=== PATIENT | female | born 1980 | race Caucasian/White ===

== ENCOUNTER 2024-09-25 05:55 | Day surgery (SDC) | payer OTHER, SELFPAY ==
[2024-08-11 10:28] VITALS: BMI 35.0
[2024-09-05 08:41] VITALS: BMI 34.4
--- OUTSIDE RECORDS SUMMARY | 2024-09-25 06:11 | XMS_ITS | Clinical Summary ---
Author Organization [facility] Address [address] [place] [address] Care Team Providers Care Synthetic Gem Press Operator Name Role Phone Rhona Mejia MD Primary Care Provider [phone] Source Comments [facility],non-owned Affiliates and Associated Physician Practices is amultiple site organization consisting of ambulatory clinics and hospital sitesin [place], [place], [place] and [place]. This disclosure is being madepursuant to the Care Everywhere program and may not contain all information available regarding this patient. Last updated [employer] [facility] Allergies No known active allergies Medications * Be aware that medications may not be up to date on this document. Alwaysverify current medications with the patient. Medication Sig Dispensed Refills Start Date End Date Status LEVOTHYROXINE SODIUM PO A ctive Citalopram Hydrobromide (CELEXA PO) Active Social History Tobacco Use Types Packs/Day Years Used Date Smoking Tobacco: Never Smokeless Tobacco: Never Sex and Gender Information Value Date Recorded Sex Assigned at Not on file Gender Identity Not on file Sexual Orientation Not on file Last Filed Vital Signs Vital Sign Reading Time Taken Comments Blood Pressure 104/70 02/18/2017 9:20 AM CDT Pulse 72 02/18/2017 9:20 AM CDT Temperature 37.1 C (98.7 F) 02/18/2017 9:20 AM CDT Respiratory Rate - - Oxygen Saturation - - Inhaled Oxygen Concentration - - Weight 68 kg (150 lb) 02/18/2017 9:20 AM CDT Height 157.5 cm (5' 2 ) 02/18/2017 9:20 AM CDT Body Mass Index 27.44 02/18/2017 9:20 AM CDT Plan of Treatment Health Maintenance Due Date Last Done Comments POLO (AGES 45-75) - COL ON CA SCREENING 1979 COLON MONITORING 1979 COLONOSCOPY - COLON CA SCREENING 1979 CT COLONOGRAPHY - COLON CA SCREENING 1979 Colorectal Cancer Screening 1979 FIT - COLON CA SCREENING 1979 FLEX SIG - COLON CA SCREENING 1979 LIPID TESTING 1979 MAMMOGRAM 1979 PAP SMEAR 1979 HIV SCREENING 1994 HEPATITIS C SCREENING 04/06/1997 DTAP/TDAP/TD VACCINES (1 - Tdap) 1998 HEPATITIS B VACCINE (1 of 3 - 19+ 3-dose series) 1998 COVID-19 VACCINE (1 - 2023-2 5 season) 2024 INFLUENZA VACCINE (#1) 2024 DEPRESSION SCREENING 06/28/2024 ZOSTER VACCINE (1 of 2) 2029 HIB VACCINE Aged Out No longer eligi ble based on patient's age to complete this topic HPV VACCINE Aged Out No longer eligi ble based on patient's age to complete this topic MENINGOCOCCAL (Group B) VACC INE SHARED DECISION-MAKING Aged Out No longer eligibl e based on patient's age to complete this topic MENINGOCOCCAL GROUPS A/C/Y/W VACCINE Aged Out No longer eligible b ased on patient's age to complete this topic PNEUMOCOCCAL VACCINE Aged Out No long er eligible based on patient's age to complete this topic Care Teams Synthetic Gem Press Operator Relationship Specialty Start Date End Date Rhona Mejia MD [address] [place] [address] [address] [place] [id number] PCP - General Family Medicine 02/18/17
--- OUTSIDE RECORDS SUMMARY | 2024-09-25 06:11 | XMS_ITS | Clinical Summary ---
Author Organization [facility] Address [address] [place] [address] Phone Care Team Providers Care Search Director Name Role Phone Unavailable Primary Care Provider Unavailabl e Allergies No known active allergies Medications levothyroxine (SYNTHROID) 50 MCG Tablet Take 50 mcg by mouth daily. Active citalopram (CeleXA) 20 MG Tablet Take 20 mg by mouth daily. Active Immunizations Immunization Administration Dates Next Due Influenza, Seasonal, Injectable, Undefined 04/24 TDAP Vaccine 05/04/2013 Social History Tobacco Use Types Packs/Day Years Used Date Smoking Tobacco: Never Assessed Comments Unknown Sex and Gender Information Value Date Recorded Sex Assigned at Not on file Legal Sex Female 7:37 PM CDT Gender Identity Not on file Sexual Orientation Not on file Plan of Treatment Health Maintenance Due Date Last Done Comments Hepatitis C Virus (HCV) Screening 1979 Hepatitis B Immunization (1 of 3 - 19+ 3-dose series) 1998 Pap Smear 2000 Cervical Cancer Screening (CCS) 2009 HPV/Cotest 2009 Discussion re Starting/Frequency of Mammograms 2019 Influenza Immunization (#1) 2024 04/24/2013 SARS-COV-2 Immunization ( season) 2024 10/15/2020, 09/24/2020 Colonoscopy 2024 Colorectal Cancer Screening 2024 Respiratory Syncytial Virus (RSV) Immunization (Adult) (1 - 1-dose 75+ series) 2054 DTaP/Tdap/Td Immunization Discontinued 05/04/2013 Meningococcal Immunization (ACWY) Aged Out No longer eligible based on patient's age to complete this topic Pneumococcal Immunization Combined Aged Out No longer eligible based on patient's age to complete this topic Rotavirus Immunization Aged Out No lo nger eligible based on patient's age to complete this topic
--- OUTSIDE RECORDS SUMMARY | 2024-09-25 06:11 | XMS_ITS | Referral Summary ---
Author Organization [id number] [place] Address [address] [place] [address] Care Team Providers Care Post Office Markup Clerk Name Role Phone Germán Cummins MD Primary Care Provider [phone] Allergies No known active allergies Medications levothyroxine (SYNTHROID, LEVOTHROID) 50 mcg tablet take 1 tablet by oral route every day 90 1 03/19/2015 Active citalopram (CeleXA) 40 mg tablet Take 1 tablet (40 mg total) by mouth daily 08/05/2023 Active Active Problems Problem Noted Date Diagnosed Date Hyperlipidemia 08/04/2023 Acute suppurative otitis med ia without spontaneous rupture of ear drum 07/04/2015 Overview (10/03/2016): Acute suppurative otitis media of left ear without spontaneous rupture of tympanic membrane, recurrence not specified Major depressive disorder 03/19/2015 Overview (10/03/2016): Major depressive disorder Hypothyroidism 03/19/2015 Overview (10/03/2016): Hypothyroidism S/P primary low transverse 08/02/2013 Endometriosis of pelvic peritoneum 09/20/2012 Immunizations Immunization Administration Dates Next Due Influenza, Quadrivalent, Split, Intramuscular ,03/19/2015 Influenza, Trivalent, IM (MDV) 04/24/2013 Influenza, Unspecified 04/24/2013 Tdap 05/04/2013 Social History Tobacco Use Types Packs/Day Years Used Date Smoking Tobacco: Former Cigarettes 1 2012 Smokeless Tobacco: Never Tobacco Cessation:Counseling Given: Not Answered Comments:I was a social smoker. Never really smoked unless I was hanging out with friends. Alcohol Use Standard Drinks/Week Comments No 0 (1 standard drink = 0.6 oz pur e alcohol) Personal Safety Answer Date Recorded Getting School Help Needed Not on file 08/12 Comments No Sex and Gender Information Value Date Recorded Sex Assigned at Not on file Legal Sex Female 7:07 PM RETAIL ADVISOR Gender Identity Not on file Sexual Orientation Not on file Occupation Industry Job Start Date Job End Date [employer] Not on file Not on file Not on file Last Filed Vital Signs Vital Sign Reading Time Taken Comments Blood Pressure 126/68 08/24/2023 2:30 PM RETAIL ADVISOR Pulse 81 10/21/2019 10:27 AM CDT Temperature 36.9 C (98.4 F) 10/21/2019 10:27 AM CDT Respiratory Rate 18 10/21/2019 10:27 AM CDT Oxygen Saturation 99% 10/21/2019 10:27 AM CDT Inhaled Oxygen Concentration - - Weight 83.9 kg (185 lb) 08/24/2023 2:30 PM RETAIL ADVISOR Height 157.5 cm (5' 2 ) 08/24/2023 2:30 PM RETAIL ADVISOR Body Mass Index 33.84 08/24/2023 2:30 PM RETAIL ADVISOR Plan of Treatment Not on file Procedures Procedure Name Priority Date/Time Associated Diagnosis Comments HIGH RISK HPV DNA DETECTION WITH GENOTYPING Routine 08/24/2023 2:57 PM RETAIL ADVISOR Screening for malignant neoplasm of cervix SERUM HEPATITIS C AB Routine 09/20/2012 10:50 AM CDT from Last 3 Months or Most Recently Relevant to Health Maintenance Results * High Risk HPV DNA Detection with Genotyping (Molecular component) (08/24/2023 2:57 PM RETAIL ADVISOR) HPV HR 16 Not Detected Not Detected [facility] AGUIRRE Comment:Testing performed by : [facility], [address], [place]., [address] HPV HR 18 Not Detected Not Detected [facility] AGUIRRE Comment:Testing performed by : [facility], [address] [place]., [address] HPV HR Non 16/18 Not Detected Not Detected [facility] AGUIRRE Comment: Interpretive Data Nucleic acid amplification for detection of high-risk Human Papilloma virus (HPV) is performed by the [employer] Fred 6800 HPV test. This assay specifically detects HPV-16 and HPV-18 genotypes. The following HPV genotypes are detected as high-risk HPV: HPV-31, 33, 35, ,39, 45, 51, 52, 56, 58, 59, 66, and 68. This assay has been approved by the [place] Food and Drug Administration for detection of HPV in cervical specimens collected by a physician using an endocervical brush/spatula or cervical broom and placed in the ThinPrep Pap Test PreservCyt collection containers. The performance characteristics of this test have been verified by the [facility]ious [facility] laboratory. Correlate with separately reported cytology results, as applicable. Interpretive data last revised 22 Testing performed by: [facility], [address] [place]., [address] Endocervical 08/24/2023 2:57 PM RETAIL ADVISOR 08/25/2023 12:28 PM RETAIL ADVISOR Narrative [facility] AGUIRRE - 08/26/2023 4:55 AM RETAIL ADVISOR Clinical history and diagnosis->Liquid-based PAP test with high risk HPV test- Z12.4 Number of vials->1 Testing type->Screening Last menstrual period (date if known)->08/09/23 Armida De Leon DO LAB BODY FLUIDS AND STO OLS ORDERABLES Final Result Performing Organization Address City/[facility]/ZIP Co de Phone Number [facility] [address] [address] Department [place] [address] * Serum Hepatitis C ab (09/20/2012 10:50 AM CDT) HCV ab Negative NEG HISTORICAL RESULTS Serum 09/20/2012 10:5 0 AM CDT Kim Mejia MD LAB BLOOD ORDERABLES Final R esult HISTORICAL RESULTS from Last 3 Months or Most Recently Relevant to Health Maintenance Insurance [facility] [employer] [facility] H[facility]/PPO Address: [address] [address] [facility] [employer]/PPO Address: [address] [place] [address] Care Teams Post Office Markup Clerk Relationship Specialty Start Date End Date Germán Cummins MD [address] [facility] [address] [place] [address] PCP - General 04/30/15
--- OUTSIDE RECORDS SUMMARY | 2024-09-25 06:11 | XMS_ITS | Data Portability ---
Author Organization [facility] [employer]ave, Main Office Address [address] [place] [address] Assessment No assessment recorded. Plan of Treatment Reminders Order Date Submit Date Provider Last Modified By Organization Details Last Modified Time Details Appointments None recorded. Lab lipid panel, serum 2023 024 [email or web address] 2 [facility] (Lab), [address] [place], [address], 4 09:54:41 TSH, serum or plasma 2023 024 [email or web address] 2 [facility] (Lab), [address] [place], [address], 4 09:54:41 CMP, serum or plasma 2023 024 [email or web address] 2 [facility] (Lab), [address] [place], [address], 4 09:54:41 CK (creatine kinase), total, serum 2023 024 [email or web address] 2 [facility] (Lab), [address] [place], [address], 4 09:54:41 Referral gynecologis t referral - needs a pap smear . thank you. Please call patient to schedule an appointment . 2023 024 [email or web address] Jazmine Velasquez, [address], [place], [address], 13:34:59 Procedures None recorded. Surgeries None recorded. Imaging MAMMO, screening, digital, bilateral - *Please call pt to schedule* 2023 [email or web address] Not available 09:15:12 Medication Orders levothyroxi ne 50 mcg tablet 2023 [id number], [address], [place], [id number], 14:26:47 citalopram 40 mg tablet 2023 [facility] #[id number], [address], [place], [id number], 14:25:07 Patient TargetsNo targets recorded. Patient InstructionsNo instructions recorded. Reason for Referral Director Process Improvement Referral for Sc reening for malignant neoplasm of cervix needs a pap smear . thank you. Please call patient to schedule an appointment. Referring Physician: Rian Obando, Family Medicine, Encounter Date: 08/05/2023 Results Created Date Observation Date Name Description Value Unit Range Abnormal Flag Note LastModifiedBy Organization Detail LastModifiedTime 11/06/1911/06/2020 TSH, serum or plasm a TSH 2.30 mIU/L normal Refer ence Range > or = 20 Years 0.40- 4.50 Pregn john Range s First trime ster 0.26- 2.66 Secon d trime ster 0.55- 2.73 Third trime ster 0.43- 2.91 Not Available [facility] [address] [place], [address], 11/06/2020 07:18:38 11/06/1911/06/2020 T4, free, serum T4, free 1.0 NG/dL 0.8-1. 8 normal Not Available [facility] [address] [place], [address], 11/06/2020 07:18:38 11/06/1911/0611/06/2020 CMP, serum or plasm a glucose 98 mg/dL 65-99 normal Fasti ng refer ence inter yanet Not Available [address], [address], 11/06/2020 07:18:37 11/06/19 21 11/06/2020 CMP, serum or plasm a urea nitrogen (BUN) 15 mg/dL 7-25 normal Not Available [address], [address], 11/06/2020 07:18:37 11/06/19 21 11/06/2020 CMP, serum or plasm a creatinine 0.68 mg/dL 0.50-1 .10 normal Not Available [address], [address], 11/06/2020 07:18:37 11/06/19 21 11/06/2020 CMP, serum or plasm a eGFR non-afr. cambodian 109 mL/mi n/1.7 3m2 > or = 60 normal Not Available [address], [address], 11/06/2020 07:18:37 11/06/19 21 11/06/2020 CMP, serum or plasm a eGFR 126 mL/mi n/1.7 3m2 > or = 60 normal Not Available [address], [address], 11/06/2020 07:18:37 11/06/19 21 11/06/2020 CMP, serum or plasm a BUN/creatini ne ratio not applic able (calc ) 6-22 Not Available [address], [address], 11/06/2020 07:18:37 11/06/19 21 11/06/2020 CMP, serum or plasm a sodium 138 mmol/ L 135-14 6 normal Not Available [address], [address], 11/06/2020 07:18:37 11/06/19 21 11/06/2020 CMP, serum or plasm a potassium 4.3 mmol/ L 3.5-5. 3 normal Not Available [address], [address], 11/06/2020 07:18:37 11/06/19 21 11/06/2020 CMP, serum or plasm a chloride 104 mmol/ L 98-110 normal Not Available [address], [address], 11/06/2020 07:18:37 11/06/19 21 11/06/2020 CMP, serum or plasm a carbon dioxide 28 mmol/ L 20-32 normal Not Available [address], [address], 11/06/2020 07:18:37 11/06/19 21 11/06/2020 CMP, serum or plasm a calcium 9.3 mg/dL 8.6-10 .2 normal Not Available [address], [address], 11/06/2020 07:18:37 11/06/1911/06/2020 CMP, serum or plasm a protein, total 7.1 g/dL 6.1-8. 1 normal Not Available [address], [address], 11/06/2020 07:18:37 11/06/1911/06/2020 CMP, serum or plasm a albumin 4.1 g/dL 3.6-5. 1 normal Not Available [facility] [address], [address], 11/06/2020 07:18:37 11/06/19 21 11/06/2020 CMP, serum or plasm a globulin 3.0 g/dL_ (calc ) 1.9-3. 7 normal Not Available [address], [address], 11/06/2020 07:18:37 11/06/19 21 11/06/2020 CMP, serum or plasm a albumin/glob ulin ratio 1.4 (calc ) 1.0-2. 5 normal Not Available [address], [address], 11/06/2020 07:18:37 11/06/19 21 11/06/2020 CMP, serum or plasm a bilirubin, total 0.5 mg/dL 0.2-1. 2 normal Not Available [address], [address], 11/06/2020 07:18:37 11/06/1911/06/2020 CMP, serum or plasm a alkaline phosphatase 43 U/L 31-125 normal Not Available [employer] [address], [address], 11/06/2020 07:18:37 11/06/19 21 11/06/2020 CMP, serum or plasm a AST 14 U/L 10-30 normal Not Available [address], [address], 11/06/2020 07:18:37 11/06/1911/06/2020 CMP, serum or plasm a ALT 16 U/L 6-29 normal Not Available [address], [address], 11/06/2020 07:18:37 11/06/19 21 11/06/2020 lipid panel , serum cholesterol, total 196 mg/dL <200 normal Not Available [address], [address], 11/06/2020 07:18:37 11/06/19 21 11/06/2020 lipid panel , serum HDL cholesterol 44 mg/dL > or = 50 low Not Available [facility] [address] [place], [address], 11/06/2020 07:18:37 11/06/1911/06/2020 lipid panel , serum triglyceride s 133 mg/dL <150 normal Not Available [facility] [address] [address] [place], [address], 11/06/2020 07:18:37 11/06/19 21 11/06/2020 lipid panel , serum LDL-choleste rol 127 mg/dL _(mango c) high Refer ence range : <100 Danay able range <100 mg/dL for prima ry preve ntion ; <70 mg/dL for patie nts with CHD or diabe tic patie nts with > or = 2 CHD risk facto rs. LDL-C is now calcu lated using the Lyla rubin-Hop kins wilianu andre n, which is a valid ated novel verito cast r accur acy than the Fried kwaku equat ion in the estim ation of LDL-C . Lyla rubin SS et al. BELA. 2013; 310(1 9): 2061- 2068 (http ://ed ucati on.Ben Nina Vuclip. com/f aq/FA Q164) Not Available [facility] [address] [address] [place], [address], 11/06/2020 07:18:37 11/06/1911/06/2020 lipid panel , serum chol/HDLC ratio 4.5 (calc ) <5.0 normal Not Available [facility] [address] [place], [address], 11/06/2020 07:18:37 11/06/1911/06/2020 lipid panel , serum non HDL cholesterol 152 mg/dL _(mango c) <130 high For patie nts with diabe celestino plus 1 major ASCVD risk facto r, treat ing to a non-H DL-C goal of <100 mg/dL (LDL- C of <70 mg/dL ) is consi hernandezd a thera gladisi c optio n. Not Available [facility] [address] [place], [address], 11/06/2020 07:18:37 08/27/19 22 08/26/2021 LIPID PANEL cholesterol 208 mg/dL 140-19 9 high NIH BRITNEY NSUS RECOM MENDA TION FOR SILVERIO STERO L: ADULT CHILD LOW RISK: <200 <170 BORDE RLINE : <200- 239 ----- HIGH RISK: >240 >200 Not Available [facility] (Lab) [address] [place], [address], 08/26/2021 16:39:31 08/27/19 22 08/26/2021 LIPID PANEL triglyceride s 162 mg/dL 0-150 high NIH BRITNEY NSUS REPOR T RECOM MENDA TION FOR TRIGL YCERI LAUREL: ADULT CHILD LOW RISK: <150 ----- BODER LINE: 150-1 99 ----- HIGH RISK: >200 ----- Not Available [facility] (Lab) [address] [place], [address], 08/26/2021 16:39:31 08/27/19 22 08/26/2021 LIPID PANEL HDL cholesterol 43 mg/dL 40- Not Available [facility] (Lab) [address] [place], [address], 08/26/2021 16:39:31 08/27/19 22 08/26/2021 LIPID PANEL LDL cholesterol, calculated 133 mg/dL 0-130 high NIH BRITNEY NSUS REPOR T RECOM MENDA TIONS FOR LDL: ADULT CHILD LOW RISK <130 <110 (OPTI MAL LDL) <100 ----- BORDE RLINE : 130-1 59 ----- HIGH RISK: >160 >130 A TRIGL YCERI DE RESUL T >400 INVAL IDATE S THE CALCU LATIO N FOR LDL FRACT IONAT ION - THE LDL RESUL T WILL NOT BE REPOR JORGE. Not Available [facility] (Lab) [address] [place], [address], 08/26/2021 16:39:31 07/16/19 23 07/17/2022 COMPR EHENS DOREEN METAB OLIC PANEL glucose 87 mg/dL 65-99 normal Fasti ng refer ence inter yanet Not Available [address] [address] [place], [address], 07/17/2022 06:47:35 07/16/19 23 07/17/2022 COMPR EHENS DOREEN METAB OLIC PANEL urea nitrogen (BUN) 18 mg/dL 7-25 normal Not Available [facility] [address], [address], 07/17/2022 06:47:35 07/16/19 23 07/17/2022 COMPR EHENS DOREEN METAB OLIC PANEL creatinine 0.71 mg/dL 0.50-0 .99 normal Not Available [address] [address] [place], [address], 07/17/2022 06:47:35 07/16/19 23 07/17/2022 COMPR EHENS DOREEN METAB OLIC PANEL eGFR 108 mL/mi n/1.7 3m2 > or = 60 normal The eGFR is based on the CKD-E PI 2020 kourtneyat leslie. To calcu late the new eGFR from a previ ous Creat inine or Cysta tin C resul t, go to https ://dimple dietz.hosea lopez/mary conti s/ kdoqi /gfr% 5Fcal culat or Not Available [address] [address] [place], [address], 07/17/2022 06:47:35 07/16/19 23 07/17/2022 COMPR EHENS DOREEN METAB OLIC PANEL BUN/creatini ne ratio not applic able (calc ) 6-22 Not Available [address] [address] [place], [address], 07/17/2022 06:47:35 07/16/19 23 07/17/2022 COMPR EHENS DOREEN METAB OLIC PANEL sodium 136 mmol/ L 135-14 6 normal Not Available [address], [address], 07/17/2022 06:47:35 07/16/19 23 07/17/2022 COMPR EHENS DOREEN METAB OLIC PANEL potassium 4.4 mmol/ L 3.5-5. 3 normal Not Available [address], [address], 07/17/2022 06:47:35 07/16/19 23 07/17/2022 COMPR EHENS DOREEN METAB OLIC PANEL chloride 103 mmol/ L 98-110 normal Not Available [address], [address], 07/17/2022 06:47:35 07/16/19 23 07/17/2022 COMPR EHENS DOREEN METAB OLIC PANEL carbon dioxide 29 mmol/ L 20-32 normal Not Available [address], [address], 07/17/2022 06:47:35 07/16/19 23 07/17/2022 COMPR EHENS DOREEN METAB OLIC PANEL calcium 9.3 mg/dL 8.6-10 .2 normal Not Available [address], [address], 07/17/2022 06:47:35 07/16/19 23 07/17/2022 COMPR EHENS DOREEN METAB OLIC PANEL protein, total 6.7 g/dL 6.1-8. 1 normal Not Available [address], [address], 07/17/2022 06:47:35 07/16/19 23 07/17/2022 COMPR EHENS DOREEN METAB OLIC PANEL albumin 4.1 g/dL 3.6-5. 1 normal Not Available [address] [place], [address], 07/17/2022 06:47:35 07/16/19 23 07/17/2022 COMPR EHENS DOREEN METAB OLIC PANEL globulin 2.6 g/dL_ (calc ) 1.9-3. 7 normal Not Available [address], [address], 07/17/2022 06:47:35 07/16/19 23 07/17/2022 COMPR EHENS DOREEN METAB OLIC PANEL albumin/glob ulin ratio 1.6 (calc ) 1.0-2. 5 normal Not Available [address], [address], 07/17/2022 06:47:35 07/16/19 23 07/17/2022 COMPR EHENS DOREEN METAB OLIC PANEL bilirubin, total 0.4 mg/dL 0.2-1. 2 normal Not Available [address], [address], 07/17/2022 06:47:35 07/16/19 23 07/17/2022 COMPR EHENS DOREEN METAB OLIC PANEL alkaline phosphatase 40 U/L 31-125 normal Not Available [address], [address], 07/17/2022 06:47:35 07/16/19 23 07/17/2022 COMPR EHENS DOREEN METAB OLIC PANEL AST 11 U/L 10-30 normal Not Available [address], [address], 07/17/2022 06:47:35 07/16/19 23 07/17/2022 COMPR EHENS DOREEN METAB OLIC PANEL ALT 13 U/L 6-29 normal Not Available [address], [address], 07/17/2022 06:47:35 07/16/19 23 07/17/2022 LIPID PANEL , STAND ANDREIA cholesterol, total 192 mg/dL <200 normal Not Available [address] [address] [place], [address], 07/17/2022 06:47:34 07/16/19 23 07/17/2022 LIPID PANEL , STAND ANDREIA HDL cholesterol 49 mg/dL > or = 50 low Not Available [facility] [address] [address] [place], [address], 07/17/2022 06:47:34 07/16/19 23 07/17/2022 LIPID PANEL , STAND ANDREIA triglyceride s 75 mg/dL <150 normal Not Available [facility] [address] [address] [place], [address], 07/17/2022 06:47:34 07/16/19 23 07/17/2022 LIPID PANEL , STAND ANDREIA LDL-choleste rol 126 mg/dL _(mango c) high Refer ence range : <100 Danay able range <100 mg/dL for prima ry preve ntion ; <70 mg/dL for patie nts with CHD or diabe tic patie nts with > or = 2 CHD risk facto rs. LDL-C is now calcu lated using the Lyla rubin-Hop kins calcu andre n, which is a valid ated novel metho d provi ding segun r accur acy than the Fried kwaku equat ion in the estim ation of LDL-C . Lyla rubin SS et al. BELA. 2013; 310(1 9): 2061- 2068 (http ://ed ucati on.Qu Kelle Disenias. com/f aq/FA Q164) Not Available [facility] [address] [address] [place], [address], 07/17/2022 06:47:34 07/16/19 23 07/17/2022 LIPID PANEL , STAND ANDREIA chol/HDLC ratio 3.9 (calc ) <5.0 normal Not Available [facility] [address] [address] [place], [address], 07/17/2022 06:47:34 07/16/19 23 07/17/2022 LIPID PANEL , STAND ANDREIA non HDL cholesterol 143 mg/dL _(mango c) <130 high For patie nts with diabe celestino plus 1 major ASCVD risk facto r, treat ing to a non-H DL-C goal of <100 mg/dL (LDL- C of <70 mg/dL ) is consi dered a thera peuti c optio n. Not Available [facility] [address] [place], [address], 07/17/2022 06:47:34 06/04/20 21 06/04/2021 MAMMO , scree savita, bilat eral No observ ation record ed. [id number] [facility] [address] [place], [address], 08/26/2022 18:40:33 06/04/20 21 MAMMO , scree savita, digit al, bilat eral [facility] [address] [place], [place] [address] Patien t Name: OLEG ESPANA Access ion #: [id number] Sex: F : 1979 3 Locati on: RA2 Attend ing Physic gabe: ELKHAT IB, RUNDA Orderi ng Physic gabe: ELKHAT IB, RUNDA Exam Date: 021 9:02 AM Exam Name: MG DIGITA L ANGELICA BILAT SCREEN Admitt ing Diagno sis(es ): RADIOL OGY REPORT - FINAL EXAM: MG DIGITA L ANGELICA BILAT SCREEN HISTOR Y: Screen ing mammog arsenio 41-yea r-old female with no curren t breast compla ints. COMPAR GEETHA: 2019, 2018 TECHNI QUE: Bilate ral CC and MLO views of the breast s were perfor med. Digita l Mammog rogerio images were obtain ed. CAD (compu ter assist ed detect ion) was utiliz ed. FINDIN GS: There are scatte red areas of fibrog landul ar densit y. No new masses , develo ping asymme tries, suspic ious calcif icatio ns, or karishma ectura l distor tion are seen. Page 1 of 2 [facility] Bety mckinney Name: OLEG ESPANA Access ion #: [id number] Sex: F : 1979 3 Exam Date: 9:02 AM Exam Name: MG CHASE Ryan ANGELICA BILAT SCREEN Admitt ing Diagno sis(es ): IMPRES RODNEY: BIRADS 1: Assess ment comple te. Negati ve. Recomm end annual screen ing mammog rogerio. Accord ing to the [employer], yearly mammog jaciel are recomm ended starti ng at age 40 and contin uing as long as the woman is in good health . Clinic al Breast Exam should be part of the period ic health exam-a bout every 3 years for women in their 20s and 30s and every year for women 40 and over. Breast self-e xam is an option for women in their 20s. Any breast change noted on the breast self-e xam she would be report ed prompt ly to the [facility] er. A negati ve mammog rogerio report should not discou rage follow -up or biopsy of a clinic ally signif icant findin g and/or abnorm ality. Dense breast tissue may obscur e small neopla sms. This bety mckinney has been entere d into a mammog rogerio remind er system with a target date for her next mammog arsenio. Create d and electr onical ly signed by: To faust MD Signed Date: 10:11 AM (CT) Dictat ed by: To faust MD DD: 10:11 AM (CT) DT: 10:11 AM (CT) Page 2 of 2 [id number] [facility] (Imaging) [address] [place], [address], 08/26/2022 18:40:33 07/09/19 23 MAMMO , scree savita, digit al, bilat eral [facility] [address] [place] [address] [facility] Name: OLEG ESPANA Access ion #: [id number] Sex: F : 1979 7 Locati on: RA2 Attend ing Physic gabe: ELKHAT IB, RUNDA Orderi ng Physic gabe: ELKHAT IB, RUNDA Exam Date: 023 9:56 AM Exam Name: DIGITA L ANGELICA BILAT SCREEN Admitt ing Diagno sis(es ): RADIOL OGY REPORT - FINAL EXAM: DIGITA L ANGELICA BILAT SCREEN HISTOR Y: screen ing mammog arsenio 42-yea r-old female with no curren t breast compla ints. COMPAR GEETHA: 2020, 2019 TECHNI QUE: Bilate ral CC and MLO views of the breast s were perfor med. Digita l Mammog rogerio images were obtain ed. CAD (compu ter assist ed detect ion) was utiliz ed. FINDIN GS: There are scatte red areas of fibrog landul ar densit y. No masses , asymme tries, suspic ious calcif icatio ns, or karishma ectura l distor tion are seen. Page 1 of 2 [facility] Bety t Name: OLEG ESPANA Access ion #: [id number] Sex: F : 1979 7 Exam Date: 023 9:56 AM Exam Name: DIGITA L ANGELICA BILAT SCREEN Admitt ing Diagno sis(es ): IMPRES RODNEY: BIRADS 1: Assess ment comple te. Negati ve. Recomm end annual screen ing mammog rogerio. Accord ing to the [employer] o[employer], yearly mammog jaciel are recomm ended starti ng at age 40 and contin uing as long as the woman is in good health . Clinic al Breast Exam should be part of the period ic health exam-a bout every 3 years for women in their 20s and 30s and every year for women 40 and over. Breast self-e xam is an option for women in their 20s. Any breast change noted on the breast self-e xam she would be report ed prompt ly [facility]. A negati ve mammog rogerio report should not discou rage follow -up or biopsy of a clinic ally signif icant findin g and/or abnorm ality. Dense breast tissue may obscur e small neopla sms. This bety mckinney has been entere d into a mammog rogerio remind er system with a target date for her next mammog arsenio. Create d and electr onical ly signed by: To faust MD Signed Date: 9:21 AM (CT) Dictat ed by: To faust MD DD: 9:21 AM (CT) DT: 9:21 AM (CT) Page 2 of 2 [id number] [facility] ([facility] [address] [place], [address], 08/26/2022 18:40:33 07/09/19 23 07/07/2022 MAMMO , scree savita, bilat eral No observ ation record ed. [id number] [facility] On Lab Orders [address] [place], [address], 08/26/2022 18:40:33 Result Notes None recorded. Problems Name Problem SNOMED Code Status Onset Date Resolution Date Notes Provider Name and Address Organization Details Recorded Time Depressive disorder 17256138 Active 2016 Not Available [employer] 3 18:39:29 Mixed anxiety and depressive disorder 023045545 Active 2022 Rhona Mejia MD [address] [facility], [address] [address], [place], [address] , [facility] [employer] [facility] 3 10:33:31 Screening for malignant neoplasm of breast Active 2023 TAMMY Brush [address], [place], [address] , [facility] [employer] 4 14:23:43 Hyperlipidemi a 74023744 Active 2023 TAMMY Brush [address], [place], [address] , [facility] [employer] 4 14:25:32 Screening for malignant neoplasm of cervix Active 2023 TAMMY Brush [address], [place], [address] , [facility] [employer] [facility] 4 14:27:39 Problem Notes None recorded. Procedures Surgical History None recorded. Imaging Results Imaging Date Name Status LastModified by Organiz ation Details LastModified Time 07/09/2022 MAMMO, screening, digital, bilateral completed [id number] [facility] ([facility] [address] [place], [address], 08/26/2022 18:40:33 07/07/2022 MAMMO, screening, bilateral completed [id number] [facility] Add On Lab Orders [address] [place], [address], 08/26/2022 18:40:33 06/04/2021 MAMMO, screening, bilateral completed [id number] [facility] [address] [place], [address], 08/26/2022 18:40:33 06/04/2021 MAMMO, screening, digital, bilateral completed [id number] [facility] (Im[facility] [address] [place], [address], 08/26/2022 18:40:33 Procedure Notes None recorded. Medical Equipment None Reported. Medications Name Sig Start Date Stop Date Status Note LastModified by Organization Details LastModified Time citalopram 40 mg tablet TAKE 1 TABLET BY MOUTH EVERY DAY active Not Available Not Available No t Available benzonatate 200 mg capsule Take 1 capsule 3 times a day by oral route as needed. active Not Available Not Available No t Available phentermine 37.5 mg tablet TK 1 T PO QAM 04/15 completed Not Available Not Available Not Available amoxicillin 875 mg tablet 04/07 completed Not Available Not Available Not Available citalopram 20 mg tablet TAKE 1 TABLET BY MOUTH EVERY DAY 05/14 completed Not Available Not Available Not Available levothyroxi ne 50 mcg tablet TAKE 1 TABLET BY MOUTH EVERY DAY active Not Available Not Available No t Available methylpredn isolone 4 mg tablets in a dose pack 04/15 completed Not Available Not Available Not Available Ozempic 1 mg/dose (4 mg/3 mL) subcutaneou s pen injector INJECT 1 MG SUBCUTANE OUSLY ONCE WEEKLY FOR 4 WEEKS active Not Available Not Available No t Available Ozempic 2 mg/dose (8 mg/3 mL) subcutaneou s pen injector INJECT 2MG ONCE WEEKLY BY SUBCUTANE OUS ROUTE FOR 4 WEEKS active Not Available Not Available No t Available Ozempic 0.25 mg or 0.5 mg (2 mg/3 mL) subcutaneou s pen injector INJECT 0.5 MG UNDER THE SKIN ONCE WEEKLY FOR 4 WEEKS active Not Available Not Available No t Available Zepbound 5 mg/0.5 mL subcutaneou s pen injector INJECT 5MG UNDER THE SKIN ONCE WEEKLY FOR 4 WEEKS active Not Available Not Available No t Available Zepbound 7.5 mg/0.5 mL subcutaneou s pen injector active Not Available Not Available Not Available Vitals Date Recorded Body mass index (BMI) Body height Oxygen saturation Oxygen saturation in Arterial blood by Pulse oximetry Heart rate Body temperature Body weight Systolic blood pressure Diastolic blood pressure Provider Name and Address Organization Details Last Updated DateTime 1 37.1 kg/m2 157.48 cm 98 % 98 % 86 /min 97.4 [degF] 25263.2 5 g 136 mm[Hg] 74 mm[Hg] Not Available [facility] 3 18:38:48 Date Recorded Body mass index (BMI) Body height Oxygen saturation Oxygen saturation in Arterial blood by Pulse oximetry Heart rate Body temperature Body weight Systolic blood pressure Diastolic blood pressure Provider Name and Address Organization Details Last Updated DateTime 1 38.2 kg/m2 157.48 cm 97 % 97 % 84 /min 96.7 [degF] 99252.8 1 g 118 mm[Hg] 82 mm[Hg] Not Available [facility] 3 18:38:48 Date Recorded Body mass index (BMI) Body height Oxygen saturation Oxygen saturation in Arterial blood by Pulse oximetry Heart rate Body temperature Body weight Systolic blood pressure Diastolic blood pressure Provider Name and Address Organization Details Last Updated DateTime 3 34 kg/m2 157.48 cm 98 % 98 % 93 /min 97.9 [degF] 78630.1 8 g 124 mm[Hg] 80 mm[Hg] Not Available [facility] 3 18:38:48 Date Recorded Body height Body mass index (BMI) Body weight Body temperature Heart rate Oxygen saturation Oxygen saturation in Arterial blood by Pulse oximetry Systolic blood pressure Diastolic blood pressure Provider Name and Address Organization Details Last Updated DateTime 4 157.48 cm 33.2 kg/m2 04034.6 2 g 98.4 [degF] 74 /min 97 % 97 % 113 mm[Hg] 67 mm[Hg] Bree Curry MA [place] [facility] [place] [employer] 4 14:20:35 Social History Question Answer Notes LastModified by Organizat ion Details LastModified Time Tobacco Smoking Status Never Smoker Not Available [facility] 08/26/2022 18:38:29 What Is Your Level Of Alcohol Consumption? Occasional [id number] Information not available 08/26/2022 What Is Your Level Of Caffeine Consumption? Occasional [id number] Information not available 08/26/2022 How Much Tobacco Do You Chew? None [id number] Information not available 08/26/2022 In The 14 Days Before Symptom Onset, Have You Had Close Contact With A Laboratory-confir med COVID-19 While That Case Was Ill? No [id number] Information not available 08/26/2022 In The 14 Days Before Symptom Onset, Have You Had Close Contact With A Person Who Is Under Investigation For COVID-19 While That Person Was Ill? No [id number] Information not available 08/26/2022 What Type Of Diet Are You Following? REGULAR [id number] Information not available 08/26/2022 Do You Or Have You Ever Used E-cigarettes Or Vape? Never Used Electronic Cigarettes [id number] Information not available 08/26/2022 Do You Or Have You Ever Used Smokeless Tobacco? Never Used Smokeless Tobacco [id number] Information not available 08/26/2022 How Much Tobacco Do You Smoke? No [id number] Information not available 08/26/2022 Sex: Unknown Functional Status Question Answer Note LastModified by Organizat ion Details LastModified Time What is your exercise level? None [id number] Information not available 08/26/2022 Mental Status None recorded. Family History Nothing Reported. Medical History No medical history recorded. Gynecological HistoryNo gynecological history recorded. Obstetrics History GPAL:G 0 P 0 0 0 0 Past Encounters Encounter ID Performer Location Encounter Start Date Encounter Closed Date Diagnosis/Indication Diagnosis SNOMED-CT Code Diagnosis ICD10 Code Diagnosis Note [id number] [facility] [place] [address] [place] [address] [place] [address] 11/01/2020 00:00:00 11/01/2020 14:42:19 [id number] [facility] [place] row[place] [address] [place] [address] [place] [address] 05/14/2021 00:00:00 05/14/2021 09:37:54 [id number] [facility] [place] [email or web address] [address] [place] [address] [place] [address] 07/02/2022 00:00:00 07/02/2022 13:34:04 [id number] TAMMY Brush [facility] [place] [address] [place] [address] [place] [address] 08/05/2023 14:01:19 08/05/2023 14:31:26 Depressive disorder 98306724 F32.A 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 Notes Date Note Type Note Provider Name and Address Organization Details Recorded Time 08/05/2023 text/html annual visit TAMMY Brush [address] [facility], [facility] [address], [place], [address], [place] - [facility] 08/09/2023 13:34:54 OBGyn Episode No OBEpisode recorded.
--- OUTSIDE RECORDS SUMMARY | 2024-09-25 06:11 | XMS_ITS | Clinical Summary ---
Author Organization [facility] [id number] [place] Address [address] [place] [address] Care Team Providers Care Chief Of Staff Name Role Phone Germán Cummins MD Primary Care Provider [phone] Allergies No known active allergies Medications levothyroxine [...] (MDV) 04/24/2013 Influenza, Unspecified 04/24/2013 Tdap 05/04/2013 Surgical History Surgery Date Site/Laterality Comments SECTION OTHER SURGICAL HISTORY R salpingectomy SECTION 08/02/2013 Medical History Medical History Date Comments Depression Depression Disorder of thyroid Thyroid dise ase Family History Medical History Relation Name Comments Heart attack Paternal Grandmother Flor Reyna Relation Name Status Comments Paternal Grandmother Flor Reyna Social History Tobacco Use Types Packs/Day Years [...] on file Legal Sex Female 7:07 PM REGULATORY TECHNICIAN Gender Identity Not on file Sexual Orientation Not on file Occupation Industry Job Start Date Job End Date [employer] Not on file Not on file Not on file Obstetrics History Para Term AB IAB SAB Ectopic Multiple Livin g Live Births 2 1 1 1 1 1 2 2 Date Outcome GA Total Labor Labor/2nd/3rd Weight Sex Type Anes PTL Ragini A1 A5 Name Clin Ectopic 014 Term 38w 1d 2.807 kg (6 lb 3 oz) F CS-LT ranv Epidur al N Livin g 4 9 BOSIC H,GIR L1RAC SUNDAY Escobar p L Delivery Location:[facility] Comments:No observed a nomalies 014 Term 38w 1d 2.863 kg (6 lb 5 oz) M CS-LT ranv Epidur al N Livin g 5 8 BOSIC H,BOY 2RACH AEL Shawn p, L Delivery Location:[facility] Comments:No observed a nomalies Last Filed Vital Signs Vital Sign Reading Time Taken Comments Blood Pressure 126/68 08/24/2023 2:30 PM REGULATORY TECHNICIAN Pulse 81 10/21/2019 10:27 AM CDT Temperature 36.9 C (98.4 F) 10/21/2019 10:27 AM CDT Respiratory Rate 18 10/21/2019 10:27 AM CDT Oxygen Saturation 99% 10/21/2019 10:27 AM CDT Inhaled Oxygen Concentration - - Weight 83.9 kg (185 lb) 08/24/2023 2:30 PM REGULATORY TECHNICIAN Height 157.5 cm (5' 2 ) 08/24/2023 2:30 PM REGULATORY TECHNICIAN Body Mass Index 33.84 08/24/2023 2:30 PM REGULATORY TECHNICIAN Plan of Treatment Health Maintenance Due Date Last Done Comments Colon Cancer Screening-Colonoscopy 1979 Depression Screening 1979 Hepatitis B Screening 1997 DTaP/Tdap/Td Vaccine (2 - Td or Tdap) 05/04/2023 05/04/2013 Breast Cancer Screening-Mammogram 07/09/2023 07/09/2022, 06/04/2021 Influenza Vaccine (#1) 2024 6, 03/19/2015, 04/24/2013, Additional history exists Cervical Cancer Screening 08/24/2024 08/24/2023, Regular Well Visit/Exam 18-64 08/24/2024 08/24/2023 Hepatitis C Screening Completed 09/20/2012 HPV Vaccines Aged Out No longer eligi ble based on patient's age to complete this topic Pneumococcal vaccine <65 Aged Out No longer eligible based on patient's age to complete this topic Procedures Procedure Name Priority Date/Time Associated Diagnosis Comments HIGH RISK HPV DNA DETECTION WITH GENOTYPING Routine 08/24/2023 2:57 PM REGULATORY TECHNICIAN Screening for malignant neoplasm of cervix SERUM HEPATITIS C AB Routine 09/20/2012 10:50 AM CDT from Last 3 Months or Most Recently Relevant to Health Maintenance Results * High Risk HPV DNA Detection with Genotyping (Molecular component) (08/24/2023 2:57 PM REGULATORY TECHNICIAN) HPV HR 16 Not Detected Not Detected [facility] Comment:Testing performed by : [facility], [address] [place] [address] HPV HR 18 Not Detected Not Detected [facility] Comment:Testing performed by : [facility], [address] [place] [address] HPV HR Non 16/18 Not Detected Not Detected [facility] Comment: Interpretive Data Nucleic acid amplification for [...] data last revised 22 Testing performed by: [facility], [address] [place]., [address] Endocervical 08/24/2023 2:57 PM REGULATORY TECHNICIAN 08/25/2023 12:28 PM REGULATORY TECHNICIAN Narrative [facility] - 08/26/2023 4:55 AM REGULATORY TECHNICIAN Clinical history and diagnosis->Liquid-based PAP test with high risk HPV test- Z12.4 Number of vials->1 Testing type->Screening Last menstrual period (date if known)->08/09/23 Armida De Leon DO LAB BODY FLUIDS AND STO OLS ORDERABLES Final Result Performing Organization Address [facility] Co de Phone Number [facility] [address] [address] Department [place] [address] * Serum Hepatitis C ab (09/20/2012 10:50 AM CDT) HCV ab Negative NEG HISTORICAL RESULTS Serum 09/20/2012 10:5 0 AM CDT Kim Mejia MD LAB BLOOD ORDERABLES Final R esult HISTORICAL RESULTS from Last 3 Months or Most Recently Relevant to Health Maintenance Insurance [facility] CHOICE PLUS [facility] CHOICE PLUS Care Teams Chief Of Staff Relationship Specialty Start Date End Date Germán Cummins MD [address] [place] [address] [address] [place] [address] PCP - General 04/30/15
--- OUTSIDE RECORDS SUMMARY | 2024-09-25 06:11 | XMS_ITS | Clinical Summary ---
Author Organization [facility] [address] [place] [address] Phone Care Team Providers Care Mail Processing Clerk Name Role Phone David Gilbert MD Primary Care Provider Allergies No known active allergies Medications levothyroxine 50 mcg Oral tablet Take 50 mcg by mouth daily floor inspector. Active vit-iron fumarate-fa (DANIEL ) 28-0.8 mg Tablet Take 1 Tab by mouth daily. Active oxyCODONE-aceta minophen (PERCOCET) 5-325 mg tablet Take 1 Tab by mouth every 4 hours as needed for Pain, Moderate (For Pain Scale 4-6). 40 Tab 0 08/04/2013 Active Active Problems Problem Noted Date Diagnosed Date pltcs 2/5, twins 08/02/2013 ROR, GBS-, 07/30/2013 Resolved Problems Problem Noted Date Diagnosed Date Resolved Date MIL, di/di twins, vtx/vtx, c oncordant growth, pit, [id number], gbs-, A+ 08/01/2013 08/02/2013 Immunizations Immunization Administration Dates Next Due (ADACEL/BOOSTRIX)(10 YR UP) TDAP VACCINE, 0.5ML, IM 05/17/2013 Influenza Seasonal Unspecified Formulation IM Family History Medical History Relation Name Comments Healthy Brother Healthy Father Healthy Mother Relation Name Status Comments Brother Alive Father Alive Mother Alive Social History Tobacco Use Types Packs/Day Years Used Date Smoking Tobacco: Former Cigarettes 0.3 10 0 07/30/2002 - 07/30/2012 Smokeless Tobacco: Never Alcohol Use Standard Drinks/Week Comments No 0 (1 standard drink = 0.6 oz pur e alcohol) Comments Unknown Sex and Gender Information Value Date Recorded Sex Assigned at Not on file Legal Sex Female 11:43 AM CDT Gender Identity Not on file Sexual Orientation Not on file Occupation Industry Job Start Date Job End Date Not on file Not on file Not on file Not on file Last Filed Vital Signs Vital Sign Reading Time Taken Comments Blood Pressure 124/62 08/05/2013 9:05 AM PATTERN CHANGER AND REPAIRER Pulse 72 08/05/2013 9:05 AM PATTERN CHANGER AND REPAIRER Temperature 36.6 C (97.9 F) 08/05/2013 9:05 AM PATTERN CHANGER AND REPAIRER Respiratory Rate 20 08/05/2013 9:05 AM PATTERN CHANGER AND REPAIRER Oxygen Saturation 98% 08/03/2013 5:50 AM PATTERN CHANGER AND REPAIRER Inhaled Oxygen Concentration - - Weight 101.3 kg (223 lb 4 oz) 08/01/2013 11:54 A M PATTERN CHANGER AND REPAIRER Height 160 cm (5' 3 ) 07/31/2013 6:06 PM PATTERN CHANGER AND REPAIRER Body Mass Index 39.55 07/31/2013 6:06 PM PATTERN CHANGER AND REPAIRER Plan of Treatment Health Maintenance Due Date Last Done Comments HEPATITIS B VACCINES (1 of 3 - 19+ 3-dose series) 1998 PAP SMEAR 2000 CERVICAL CANCER SCREENING 2009 HPV/Cotest (30-65) 2009 PAP SMEAR 2009 BREAST CANCER SCREENING 2019 DTAP/TDAP/TD VACCINES (2 - T d or Tdap) 05/17/2023 05/17/2013 INFLUENZA VACCINE (#1) 2024 04/28/2013 COLORECTAL SCREENING 2024 Colorectal Cancer Screening 2024 FIT-DNA Q 3 years 2024 FIT/FOBT Q 1 year 2024 Flex Sig/CT Colonography Q 5 years 2024 HPV VACCINES Aged Out No longer eligi ble based on patient's age to complete this topic PNEUMOCOCCAL VACCINE 0-49 YEARS Aged Out No longer eligible based on patient's age to complete this topic Insurance Advance Directives For more information, please contact: [phone] * Full Code (Latest Code Status on File) Date Activated Date Inactivated Comments 08/02/2013 5:48 AM 08/05/2013 2:59 PM * Full Code Date Activated Date Inactivated Comments 08/01/2013 11:28 AM 08/02/2013 5:48 AM Care Teams Mail Processing Clerk Relationship Specialty Start Date End Date David Gilbert MD [address] [place] [address] PCP - General Internal Medicine 01/19/13
[2024-09-25 06:25] VITALS: BP 116/60; PULSE 63; RESP 14; TEMP 36.6; O2SAT 100
--- NOTE | 2024-09-25 07:13 | WPDANESEPPF ---
Anes - Initial Pre Proc Eval Procedure: Operation Date: 09/25/24 07:30 Proposed Procedures p Screening Colonoscopy - Ari Leija DO Date/Time: 09/25/24 07:13 Surgeon: Ari Leija DO Pre Op Diagnosis: Neoplasm Screening Patient Data Age: 44 Gender: F Height: 1.57 m Weight: 86.75 kg Last Vital Signs Temp 36.6 C 09/25/24 06:25 Pulse 63 09/25/24 06:25 Resp 14 09/25/24 06:25 BP 116/60 09/25/24 06:25 Pulse Ox 100 09/25/24 06:25 O2 Del Method Room Air 09/25/24 06:25 Allergies Allergy/AdvReac Type Severity Reaction Status Date / Time No Known Allergies Allergy Verified 09/25/24 06:19 Home Medications ?Medication ?Instructions ?Recorded ?Confirmed ?Type citalopram 40 mg tablet 40 mg PO DAILY #90 tabs 08/08/24 09/25/24 Rx levothyroxine 50 mcg tablet 50 mcg PO DAILY #90 tabs 08/08/24 09/25/24 Rx (Levoxyl) Patient hx anesthesia problems: none Family hx anesthesia problems: none Results Review: All pre-operative results and documents have been reviewed as part of the pre-operative evaluation. [facility] Past Medical History Medical History (Updated 09/25/24 @ 07:13 by Valentino Oconnell MD) Depression Hypothyroid Surgical History Surgical History History of salpingectomy right H/O section Family History Family History Father Hypertension Sibling Alcohol abuse Depression Grandparent Heart disease Cancer Social History Social History Smoking status: Former smoker Tobacco type: cigarettes Smoking end date: 06/28/12 Alcohol intake: current Drinks per week: 1 Alcohol use details: occasionally Substance use: never Substance use type: does not use Do You Feel Safe in your Home?: Yes Living arrangements: with family Spiritual care concerns: No Anes - Eval Final PreProcedure Day of Procedure 09/25/24 07:13 Patient weight: obese Heart: regular rate and rhythm Lungs: clear to auscultation Airway: Mallampati scale class II Neurological: alert and oriented Last oral intake: >/= 8 hours ASA classification: II Emergent: no Anesthetic plan: proceed Anesthesia type and monitoring: general GIVS and standard monitoring Results Review: All pre-operative results and documents have been reviewed as part of the pre-operative evaluation. Informed Consent: The patient's anesthetic plan and its attendant risks and benefits were discussed with the patient/family/POA. Questions were solicited and answers provided to the satisfaction of the patient/family/POA.
--- NOTE | 2024-09-25 07:24 | PM.IMHP ---
H&P: HPI History of Present Illness Date/Time: 09/25/24 07:24 Chief Complaint: Screening for colorectal cancer Narrative: 44 yo woman presents for colonoscopy. She denies hematochezia or melena. She has a grandfather who had colon cancer but no 1st degree relatives. Review of Systems Review of Systems: All systems reviewed & are unremarkable except as noted in HPI and below Constitutional: Constitutional: Denies chills, Denies fever(s), Denies headache(s) and Denies weight loss Eyes: Eyes: Denies change in vision ENT: Denies dizziness, Denies headache(s), Denies neck mass and Denies throat swelling Cardiovascular: Cardiovascular: Denies chest pain, Denies lightheadedness and Denies dyspnea Respiratory: Respiratory: Denies cough, Denies dyspnea and Denies wheezing Gastrointestinal: Gastrointestinal: Denies abdominal pain, Denies change in bowel habits, Denies nausea and Denies vomiting Genitourinary: Genitourinary: Denies hematuria and Denies dysuria Musculoskeletal: Musculoskeletal: Reports as per HPI Integumentary/Breasts: Skin/Breast: Reports as per HPI Neurologic: Denies dizziness and Denies headache(s) Allergic/Immunologic: Allergic/Immunologic: Denies throat swelling and Denies wheezing PMF Past Medical History Medical History (Updated 09/25/24 @ 07:25 by Ari Leija DO) Depression Hypothyroid Surgical History Surgical History History of salpingectomy right H/O section Family History Family History Father Hypertension Sibling Alcohol abuse Depression Grandparent Heart disease Cancer Social History Social History Smoking status: Former smoker Tobacco type: cigarettes Smoking end date: 06/28/12 Alcohol intake: current Drinks per week: 1 Alcohol use details: occasionally Substance use: never Substance use type: does not use Do You Feel Safe in your Home?: Yes Living arrangements: with family Spiritual care concerns: No Meds Home Medications and Allergies Home Medications ?Medication ?Instructions ?Recorded ?Confirmed ?Type citalopram 40 mg tablet 40 mg PO DAILY #90 tabs 08/08/24 09/25/24 Rx levothyroxine 50 mcg tablet 50 mcg PO DAILY #90 tabs 08/08/24 09/25/24 Rx (Levoxyl) Allergies Allergy/AdvReac Type Severity Reaction Status Date / Time No Known Allergies Allergy Verified 09/25/24 06:19 Vital Signs Vital Signs - 24 hr 09/25/24 06:25 Temperature 97.9 F Pulse Rate 63 Respiratory Rate 14 Blood Pressure 116/60 Pulse Oximetry 100 Oxygen Delivery Room Air Exam Const: General: no acute distress and alert Orientation/consciousness: patient oriented x3 HENMT: Head: normocephalic and atraumatic Ears: hearing grossly normal bilaterally Face/Nose/Sinus: Normal nares present Mouth: Yes Normal oral and palatal mucosa present Eyes: Periorbital: periorbital findings normal Sclera: sclerae normal EOM: EOMs intact bilaterally Neck: Neck: normal visual inspection, no lymphadenopathy and trachea midline Chest: Chest palpation & inspection: normal inspection of the chest Resp: Effort & Inspection: normal respiratory effort Auscultation: clear to auscultation bilaterally Cardio: Jugular venous distension: no JVD Rate: regular rate Rhythm: regular rhythm Heart sounds: S1 normal heart sound present and S2 normal heart sound present Peripheral pulses: Peripheral pulses 2+ throughout GI: Inspection: normal to inspection GI Palp: Yes Soft to palpation, No Tenderness to palpation present (GI), No Guarding due to palpation present (GI) and No Rebound tenderness present Percussion: Yes normal to percussion Auscultation: normal bowel sounds : General: Yes no CVA tenderness Back/Spine/Pelvis: Back: no CVA tenderness Neuro: General: patient oriented x3, no focal motor deficits and CN's II-XI intact bilaterally Cognition (Neuro): normal cognition Speech: normal speech Motor exam (neuro): 5/5 motor strength present throughout Extrem: General: capillary refill normal and no clubbing, cyanosis or edema Assessment and Plan Assessment and plan (1) Screening for colorectal cancer: Code(s): Z12.11 - Encounter for screening for malignant neoplasm of colon; Z12.12 - Encounter for screening for malignant neoplasm of rectum Status: Acute Assessment and Plan: I have recommended colonoscopy. I have discussed the procedure, risks, benefits, and alternatives. Questions were answered. Patient is agreeable to proceed.
[2024-09-25] MEDS: LACTATED RINGERS 1,000 ML 150 ML IV CONT (07:25)
[2024-09-25 07:45] VITALS: BP 104/49; PULSE 70; RESP 16; O2SAT 100
--- NOTE | 2024-09-25 07:53 | WPDANESPN ---
Anes - Prog Note Post-Op Date/Time: 09/25/24 07:53 Cardiovascular status: normal Respiratory status: normal Airway patency: baseline Mental status: baseline Post-Op hydration status: normal Vital Signs: Last Vital Signs Temp 36.6 C 09/25/24 06:25 Pulse 63 09/25/24 06:25 Resp 14 09/25/24 06:25 BP 116/60 09/25/24 06:25 Pulse Ox 100 09/25/24 06:25 O2 Del Method Room Air 09/25/24 06:25 Pain Score (VAS): 0/10 I/O: Intake & Output 09/24/24 09/24/24 09/25/24 15:59 23:59 07:59 Intake Total 700 Balance 700 Patient Feedback: Patient satisfied with anesthetic care.
[2024-09-25 07:55] VITALS: BP 97/52; PULSE 66; RESP 16; O2SAT 100
[2024-09-25 08:05] VITALS: BP 99/53; PULSE 56; RESP 16; O2SAT 100
--- NOTE | 2024-09-25 08:40 | SUR.PHASEII ---
0815; PT DRESSED AND READY FOR DISCHARGE, WAITING ON PAPERWORK TO PRINT.
== END 2024-09-25 08:30 | disposition home or self-care (01) ==
PROVIDERS: PCP Family Medicine; Visit Provider Surgery
PROC: 0DJD8ZZ Inspection of Lower Intestinal Tract, Via Natural or Artificial Opening Endoscopic (ICD-10-PCS; CPT 45378; principal; 2024-09-25 07:30)
DX: Z12.11 Encounter for screening for malignant neoplasm of colon (principal)
CPT/HCPCS: 45378

== ENCOUNTER 2024-10-17 08:03 | Outpatient (CLI) | payer OTHER, SELFPAY ==
--- NOTE | ~2024-10-17 | MM_ITS ---
EXAMINATION: MM screening cit[facility] BI w latoya HISTORY: Screening TECHNIQUE: Craniocaudal and mediolateral oblique 3-D tomosynthesis images were obtained and synthetic 2-D images were generated. CAD analysis was submitted and interpreted. COMPARISON: No prior mammogram is available for comparison at this institution. BREAST PARENCHYMAL COMPOSITION: Not dense: There are scattered areas of fibroglandular density. FINDINGS: There is no evidence of suspicious mass, calcification, or architectural distortion to sugg est malignancy in either breast. There has been no suspicious interval change. IMPRESSION: 1. No mammographic evidence of malignancy. 2. Recommend routine screening mammography in one year. BI-RADS Category 1: Negative Reviewed, dictated and finalized at location A.
== END 2024-10-17 08:04 | disposition home or self-care (01) ==
LOC: MICIMG 08:03
PROVIDERS: PCP Family Medicine; Visit Provider Family Medicine
DX: Z12.31 Encounter for screening mammogram for malignant neoplasm of breast (principal)
CPT/HCPCS: 77063; 77067